=== PATIENT | female | born 1995 | race Caucasian/White ===

== ENCOUNTER 2017-11-12 22:22 | Emergency (ER) | payer OTHER ==
[2017-11-13] MEDS: DEXAMETHASONE 10 MG/ML 1 ML INJ IV (02:07)
[2017-11-13] MEDS: ALBUTEROL 0.083% (NEB) 2.5 MG/3 ML AMP NEB (02:09)
[2017-11-13] MEDS: IPRATROPIUM (NEB) 0.5 MG/2.5 ML AMP NEB (02:09)
[2017-11-13] MEDS: DEXAMETHASONE 10 MG/ML 1 ML INJ IM (02:41)
== END 2017-11-13 02:50 | disposition home or self-care (01) ==
LOC: FTE 22:22
DX: J45.31 Mild persistent asthma with (acute) exacerbation (principal)
CPT/HCPCS: 94664; 96372; 99284-25

== ENCOUNTER → 2017-11-15 | Emergency (ER) | payer OTHER ==
[2017-11-16] MEDS: LORAZEPAM 1 MG TAB PO (01:55)
== END | disposition home or self-care (01) ==
LOC: FTE 22:23
DX: F41.1 Generalized anxiety disorder (principal); J45.909 Unspecified asthma, uncomplicated
CPT/HCPCS: 99283; Z7502

== ENCOUNTER 2018-06-20 06:55 | Emergency (ER) | payer OTHER | END 2018-06-20 07:13 | disposition home or self-care (01) | LOC: FTE 06:55 | DX: J02.9 Acute pharyngitis, unspecified (principal); J45.901 Unspecified asthma with (acute) exacerbation | CPT/HCPCS: 99283; Z7502 ==

== ENCOUNTER 2018-10-03 08:49 | Emergency (ER) | payer OTHER ==
[2018-10-03] MEDS: ONDANSETRON (ODT) 4 MG TAB ODT (09:36)
[2018-10-03 09:39] LABS: URINE BLOOD (Dip) POC Negative (NEGATIVE); URINE GLUCOSE (Dip) POC Negative (NEGATIVE); URINE KETONES (Dip) POC Negative (NEGATIVE); URINE LEUKOCYTE EST (Dip) POC Negative (NEGATIVE); URINE NITRITE (Dip) POC Negative (NEGATIVE); URINE TOTAL PROTEIN POC Negative (NEGATIVE)
[2018-10-03 09:39] LABS: URINE PH (Dip) POC 8.5 (5.0-8.5)
== END 2018-10-03 10:36 | disposition home or self-care (01) ==
LOC: FTE 08:49
DX: B34.9 Viral infection, unspecified (principal); J45.909 Unspecified asthma, uncomplicated
CPT/HCPCS: 81003; 81025; 99283

== ENCOUNTER 2018-12-01 19:27 | Emergency (ER) | payer OTHER ==
[2018-12-01] MEDS: IBUPROFEN 600 MG TAB PO (21:57)
== END 2018-12-01 23:50 | disposition home or self-care (01) ==
LOC: FTE 23:50
DX: N64.4 Mastodynia (principal); L73.9 Follicular disorder, unspecified
CPT/HCPCS: 76642; 99284-25

== ENCOUNTER 2019-01-19 20:48 | Emergency (ER) | payer OTHER ==
[2019-01-19] MEDS: ACETAMINOPHEN 500 MG TAB PO (22:41)
[2019-01-19 22:57] LABS: ADD MAN DIFF? NO
[2019-01-19 23:00] LABS: BASOPHIL # 0.1 10^3/ul (0.0-0.1); BASOPHILS % 0.4 % (0.0-2.0); EOSINOPHILS # 0.1 10^3/ul (0.0-0.5); EOSINOPHILS % 0.5 % (0.0-7.0); HEMATOCRIT 42.4 % (37.0-47.0); HEMOGLOBIN 14.2 g/dl (12.0-16.0); LYMPHOCYTES # 1.9 10^3/ul (0.8-2.9); LYMPHOCYTES % 14.4 % (15.0-51.0); MEAN CORPUSCULAR HEMOGLOBIN 28.5 pg (29.0-33.0); MEAN CORPUSCULAR HGB CONC 33.5 g/dl (32.0-37.0); MEAN CORPUSCULAR VOLUME 85.1 fl (82.0-101.0); MEAN PLATELET VOLUME 11.1 fl (7.4-10.4); MONOCYTE # 0.8 10^3/ul (0.3-0.9); MONOCYTES % 6.3 % (0.0-11.0); NEUTROPHIL # 10.1 10^3/ul (1.6-7.5); PLATELET COUNT 253 10^3/UL (140-415); RED BLOOD COUNT 4.98 10^6/ul (4.20-5.40); RED CELL DISTRIBUTION WIDTH 12.5 % (11.5-14.5)
[2019-01-19 23:18] LABS: ALANINE AMINOTRANSFERASE 127 IU/L (13-69); ALBUMIN 4.1 g/dl (3.3-4.9); ALBUMIN/GLOBULIN RATIO 1.07; ALKALINE PHOSPHATASE 232 IU/L (42-121); ANION GAP 7 (5-13); ASPARTATE AMINO TRANSFERASE 92 IU/L (15-46); BILIRUBIN,INDIRECT 0.4 mg/dl (0-1.1); BILIRUBIN,TOTAL 0.4 mg/dl (0.2-1.3); BLOOD UREA NITROGEN 8 mg/dl (7-20); CALCIUM 9.2 mg/dl (8.4-10.2); CARBON DIOXIDE 27 mmol/L (21-31); CHLORIDE 106 mmol/L (97-110); CREATININE 0.61 mg/dl (0.44-1.00); Estimated GFR > 60 mL/min (>60); GLUCOSE 104 mg/dl (70-220); POTASSIUM 3.8 mmol/L (3.5-5.1); SODIUM 140 mmol/L (135-144); TOTAL PROTEIN 7.9 g/dl (6.1-8.1)
[2019-01-19 23:21] LABS: INR 0.85; PROTIME 11.7 Sec (11.9-14.9); PT RATIO 0.9
[2019-01-20] MEDS: IOHEXOL 300MG/ML 150 ML BTL (00:18)
[2019-01-20] MEDS: SOD CHLORIDE 0.9% 100 ML (00:19)
== END 2019-01-20 00:57 | disposition home or self-care (01) ==
LOC: FTE 01-20 00:57
DX: R51 Headache (principal); M79.661 Pain in right lower leg; M79.621 Pain in right upper arm; M79.622 Pain in left upper arm; M79.662 Pain in left lower leg; R07.9 Chest pain, unspecified
CPT/HCPCS: 36415; 70450; 71260; 72125; 73030; 73080-RT; 73110-RT; 74177; 80053; 81025; 85025; 85610; 85730; 99285-25